=== PATIENT | male | born 1940 | race Hispanic/Latino ===

== ENCOUNTER 2017-06-27 12:36 | Observation (INO) | payer MEDICARE ==
[2017-06-27 12:37] VITALS: BMI 20.2
[2017-06-27] MEDS ORDERED: Sodium Chloride 0.9% 500 ML IV STA (13:00)
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
[2017-06-27 13:26] LABS: VENOUS BLOOD GAS BASE EXCESS 5.1 mmol/L (0.0-2.0); VENOUS BLOOD GAS PCO2 47 mmHg (40-60); VENOUS BLOOD PH 7.42 (7.32-7.43)
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
[2017-06-27] MEDS ORDERED: Magnesium Hydroxide Susp 30 ml UD PO PRN (13:32)
[2017-06-27 13:41] LABS: ALB/GLOB RATIO 1.3 (1.0-2.1); ALKALINE PHOSPHATASE 124 U/L (38-126); ALT/SGPT 131 U/L (21-72); AST/SGOT 48 U/L (17-59); BILIRUBIN,TOTAL 0.7 mg/dl (0.2-1.3); BLOOD UREA NITROGEN 14 mg/dl (9-20); CALCIUM 9.5 mg/dL (8.4-10.2); CARBON DIOXIDE 26 mmol/L (22-30); CHLORIDE 99 mmol/L (98-107); GFR AFRICAN-AMERICAN > 60; GLUCOSE,RANDOM 111 mg/dL (75-110); POTASSIUM 4.5 MMOL/L (3.6-5.0); SODIUM 138 mmol/l (132-148); TOTAL PROTEIN 6.8 G/DL (6.3-8.2)
[2017-06-27] MEDS: oxyCODONE 5 mg Immediate Release Tab PO PRN (22:18)
[2017-06-28 05:38] LABS: BASO % 0.3 % (0.0-2.0); EOS # 0.3 K/uL (0.0-0.7); EOS % 2.9 % (0.0-4.0); HEMATOCRIT 34.1 % (35.0-51.0); LYMPH # 0.9 K/uL (1.0-4.3); LYMPH % 9.7 % (20.0-40.0); MEAN CELL VOLUME 89.2 fl (80.0-94.0); MEAN CORPUSCULAR HEMOGLOBIN 30.6 pg (27.0-31.0); MEAN CORPUSCULAR HGB CONC 34.4 g/dL (33.0-37.0); MEAN PLATELET VOLUME 11.4 fl (7.2-11.7); MONO # 1.2 K/uL (0.0-0.8); MONO % 13.6 % (0.0-10.0); NEUT # 6.6 K/uL (1.8-7.0); NEUT % 73.5 % (50.0-75.0); NRBC % 0.1 % (0.0-0.0); RED CELL DISTRIBUTION WIDTH 12.6 % (11.5-14.5); WHITE BLOOD COUNT 8.9 K/uL (4.8-10.8)
[2017-06-28 05:43] LABS: BLOOD UREA NITROGEN 15 mg/dl (9-20); CALCIUM 9.2 mg/dL (8.4-10.2); CARBON DIOXIDE 26 mmol/L (22-30); CHLORIDE 102 mmol/L (98-107); GFR AFRICAN-AMERICAN > 60; GLUCOSE,RANDOM 99 mg/dL (75-110); POTASSIUM 3.9 MMOL/L (3.6-5.0); SODIUM 139 mmol/l (132-148)
[2017-06-28] MEDS ORDERED: cefTRIAXone IV 1 gm in Dextros 50 ML IVPB SCH (09:00)
[2017-06-28] MEDS: Piperacillin/Tazobact 3.375 GM in Sodium Chloride 0.9% 100 ML IVPB SCH ×2 (13:30→16:57)
[2017-06-28] MEDS: oxyCODONE 5 mg Immediate Release Tab PO PRN (15:12)
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
[2017-06-28 16:24] VITALS: O2SAT 100
[2017-06-28 16:52] VITALS: BP 132/73; PULSE 78; RESP 20; TEMP 98.1
--- NOTE | 2017-06-29 11:07 | CARD ---
APPROVED REPORT EXAM: Two-dimensional and M-mode echocardiogram with Doppler and color Doppler. Other Information Quality : FairRhythm : NSR Technically limited study due to body habitus. INDICATION Infection:Subacute bacterial endocarditis 2D DIMENSIONS IVSd1.02 (0.7-1.1cm)LVDd4.23 (3.9-5.9cm) LVOT Diameter1.51 (1.8-2.4cm)PWd0.89 (0.7-1.1cm) IVSs1.32 (0.8-1.2cm)LVDs3.22 (2.5-4.0cm) FS (%) 24.0 %PWs1.08 (0.8-1.2cm) M-Mode DIMENSIONS Left Atrium (MM)3.14 (2.5-4.0cm)IVSd1.29 (0.7-1.1cm) Aortic Root2.99 (2.2-3.7cm)LVDd4.94 (4.0-5.6cm) Aortic Cusp Exc.1.85 (1.5-2.0cm)PWd1.06 (0.7-1.1cm) IVSs1.29 cmFS (%) 27 % LVDs3.63 (2.0-3.8cm)PWs1.44 cm Mitral Valve MV E Ddieevpu08.6cm/sMV DECEL DLCO226efDN A Yddzdnkm97.6cm/s MV ANH52mdZ/A ratio0.8MVA (PHT)2.38cm2 TDI Lateral E' Peak V7.82cm/sMedial E' Peak V7.50cm/sE/Lateral E'6.5 E/Medial E'6.7 LEFT VENTRICLE The left ventricle is normal size. There is normal left ventricular wall thickness. The left ventricular function is normal. The left ventricular ejection fraction is within the normal range. The Ejection Fraction is 65-70%. There is normal LV segmental wall motion. The left ventricular diastolic function is normal. No left ventricle thrombus noted on this study. There is no mass noted in the left ventricle. RIGHT VENTRICLE The right ventricle is normal size. There is normal right ventricular wall thickness. The right ventricular systolic function is normal. ATRIA The left atrium size is normal. The right atrium size is normal. The interatrial septum is intact with no evidence for an atrial septal defect. AORTIC VALVE The aortic valve is normal in structure and function. No aortic regurgitation is present. There is no aortic valvular stenosis. There is no aortic valvular vegetation. MITRAL VALVE The mitral valve is normal in structure and function. There is no evidence of mitral valve prolapse. There is no mitral valve stenosis. There is no mitral valve regurgitation noted. TRICUSPID VALVE The tricuspid valve is normal in structure and function. There is no tricuspid valve regurgitation noted. There is no tricuspid valve prolapse or vegetation. There is no tricuspid valve stenosis. PULMONIC VALVE The pulmonary valve is normal in structure and function. There is no pulmonic valvular regurgitation. There is no pulmonic valvular stenosis. GREAT VESSELS The aortic root is normal in size. The IVC is normal in size and collapses >50% with inspiration. PERICARDIAL EFFUSION The pericardium appears normal. There is no pleural effusion. <Conclusion> The left ventricle is normal size. The left ventricular function is normal. The left ventricular ejection fraction is within the normal range. The Ejection Fraction is 65-70%.
== END 2017-06-28 18:35 ==
LOC: H.ER 12:36 → H.ERHOLD 13:00 → H.TEL 16:10
PROVIDERS: ADMIT Student in an Organized Health Care Education/Training Program; ATTEND Student in an Organized Health Care Education/Training Program
DX: N39.0 Urinary tract infection, site not specified (principal); A41.9 Sepsis, unspecified organism; A80.9 Acute poliomyelitis, unspecified; B95.2 Enterococcus as the cause of diseases classified elsewhere; B96.1 Klebsiella pneumoniae [K. pneumoniae] as the cause of diseases classified elsewhere; I10 Essential (primary) hypertension; Z79.899 Other long term (current) drug therapy
CPT/HCPCS: 36415; 80048; 80053; 82803; 85025; 87040; 93306; 97162; 97166; 99285; G0378; G8978; G8979; G8987; G8988; J0696; J2543; J7040